=== PATIENT | female | born 1975 | race Caucasian/White ===

== ENCOUNTER 2016-11-26 00:53 | Emergency (ER) | payer BC, OTHER ==
[2016-11-26 01:09] VITALS: BP 145/68; PULSE 100; RESP 18; TEMP 98.2; O2SAT 99
[2016-11-26 02:39] LABS: AUTOMATED NEUTROPHIL # 7.5 TH/MM3 (1.8-7.7); BASOPHIL # 0.1 TH/MM3 (0-0.2); BASOPHIL % 0.6 % (0.0-2.0); EOSINOPHIL # 0.1 TH/MM3 (0-0.4); EOSINOPHIL % 0.7 % (0.0-4.0); HEMATOCRIT 40.9 % (35.0-46.0); HEMO FLAGS DIFF FINAL; LYMPH % 21.4 % (9.0-44.0); LYMPHOCYTE # 2.3 TH/MM3 (1.0-4.8); MEAN CELL VOLUME 94.3 FL (80.0-100.0); MEAN CORPUSCULAR HEMOGLOBIN 31.2 PG (27.0-34.0); MEAN CORPUSCULAR HGB CONC 33.1 % (32.0-36.0); MONO % 6.1 % (0.0-8.0); NEUT % 71.2 % (16.0-70.0); PLATELET COUNT 277 TH/MM3 (150-450); RED BLOOD COUNT 4.34 MIL/MM3 (4.00-5.30); RED CELL DISTRIBUTION WIDTH 12.5 % (11.6-17.2); WHITE BLOOD COUNT 10.5 TH/MM3 (4.0-11.0)
[2016-11-26 02:41] LABS: AMPHETAMINE, URINE NEG (NEG); BARBITURATES, URINE NEG (NEG); COCAINE, URINE NEG (NEG)
[2016-11-26 02:50] LABS: BICARBONATE 27.6 MEQ/L (21.0-32.0); POTASSIUM 3.5 MEQ/L (3.5-5.1)
--- NOTE | 2016-11-26 03:05 | PD ---
HPI Chief Complaint: Psychiatric Symptoms Time Seen by Provider: 03:04 Travel History International Travel<30 days: No Contact w/Intl Traveler<30days: No Traveled to known affect area: No History of Present Illness HPI 41-year-old female presents to emergency department under Rocha act for psychiatric evaluation. Patient states she got into an argument with her and made comments about wanting to . Patient states she may no suicidal threat. Denies suicidal or homicidal ideations. States she does drink alcohol and has been today. She denies any other acute medical needs at this time. [facility] Past Medical History Medical History: Denies Significant Hx ?: Not Past Surgical History Surgical History: No Previous Surgery Social History Alcohol Use: Yes (socially) Tobacco Use: No Allergies-Medications (Allergen,Severity, Reaction): Coded Allergies: No Known Allergies (Unverified , 11/26/16) Reported Meds & Prescriptions Reported Meds & Active Scripts Active No Active Prescriptions or Reported Medications Review of Systems Except as stated in HPI: all other systems reviewed are Neg Physical Exam Narrative GENERAL: Well-nourished, well-developed female patient in no acute distress SKIN: Focused skin assessment warm/dry. HEAD: Normocephalic. EYES: No scleral icterus. No injection or drainage. NECK: Supple, trachea midline. No JVD or lymphadenopathy. CARDIOVASCULAR: Elevated rate and rhythm without murmurs, gallops, or rubs. RESPIRATORY: Breath sounds equal bilaterally. No accessory muscle use. GASTROINTESTINAL: Abdomen soft, non-tender, nondistended. MUSCULOSKELETAL: No cyanosis, or edema. BACK: Nontender without obvious deformity. No CVA tenderness. Data Data Last Documented VS Vital Signs Date Time Temp Pulse Resp B/P Pulse Ox O2 Delivery O2 Flow Rate FiO2 11/26/16 01:09 98.2 100 18 145/68 99 Room Air Orders Complete Blood Count With Diff (11/26/16 01:14) Basic Metabolic Panel (Bmp) (11/26/16 01:14) Psych Screen (11/26/16 01:14) Drug Screen, Random Urine (11/26/16 01:14) Alcohol (Ethanol) (11/26/16 01:14) Labs Laboratory Tests Test 11/26/16 02:20 White Blood Count 10.5 TH/MM3 Red Blood Count 4.34 MIL/MM3 Hemoglobin 13.5 GM/DL Hematocrit 40.9 % Mean Corpuscular Volume 94.3 FL Mean Corpuscular Hemoglobin 31.2 PG Mean Corpuscular Hemoglobin 33.1 % Concent Red Cell Distribution Width 12.5 % Platelet Count 277 TH/MM3 Mean Platelet Volume 9.8 FL Neutrophils (%) (Auto) 71.2 % Lymphocytes (%) (Auto) 21.4 % Monocytes (%) (Auto) 6.1 % Eosinophils (%) (Auto) 0.7 % Basophils (%) (Auto) 0.6 % Neutrophils # (Auto) 7.5 TH/MM3 Lymphocytes # (Auto) 2.3 TH/MM3 Monocytes # (Auto) 0.6 TH/MM3 Eosinophils # (Auto) 0.1 TH/MM3 Basophils # (Auto) 0.1 TH/MM3 CBC Comment DIFF FINAL Differential Comment Sodium Level 143 MEQ/L Potassium Level 3.5 MEQ/L Chloride Level 106 MEQ/L Carbon Dioxide Level 27.6 MEQ/L Anion Gap 9 MEQ/L Blood Urea Nitrogen 15 MG/DL Creatinine 0.91 MG/DL Estimat Glomerular Filtration 68 ML/MIN Rate Random Glucose 98 MG/DL Calcium Level 9.3 MG/DL Urine Opiates Screen NEG Urine Barbiturates Screen NEG Urine Amphetamines Screen NEG Urine Benzodiazepines Screen NEG Urine Cocaine Screen NEG Urine Cannabinoids Screen NEG Ethyl Alcohol Level 35 MG/DL MDM Medical Decision Making Medical Screen Exam Complete: Yes Emergency Medical Condition: Yes Medical Record Reviewed: Yes Differential Diagnosis Mood disorder versus personality disorder versus adjustment reaction disorder versus substance abuse Narrative Course 41-year-old female presents to the emergency department under Rocha act for psychiatric evaluation. Patient appears without distress. Lab work is without acute abnormality. Patient is medically cleared to undergo psychiatric screening for further evaluation and disposition. Mental health screening discussed with the patient. Psychiatric screen ordered. Diagnosis Primary Impression: Adjustment disorder Scripts No Active Prescriptions or Reported Meds Condition: Sandra De Luna November 26, 2016 03:04
[2016-11-26 08:14] VITALS: BP 114/58; PULSE 75; RESP 16; O2SAT 96
--- NOTE | 2016-11-26 15:27 | PD.CONS ---
Provisional Diagnosis Admission Date [facility]. Adjustment disorder with disturbance of conduct [facility] II. Deferred [facility]. No significant medical history [facility] IV. Consult with [facility]. 55 History of Present Illness Service Psychiatry Consult Requested By Primary Care Physician No Primary Care Physician HPI The patient is a 41-year-old woman, who recently moved to [place] from [place], , without any previous psychiatric history, no previous suicidal attempts, no previous psychiatric hospitalizations, no significant medical history, who presents to emergency department under Rocha act for psychiatric evaluation. Patient states she got into an argument with her and made comments about wanting to . On psychiatric evaluation today the patient clarifies that yesterday was her first day living in [place]. She and her bought a new house in [place], they went to eat to a restaurant last night to celebrate, she had a couple of glasses of wine, but when she got home she engaged in an argument with her , she says that he lacks her out of the house while it was raining, she became very loud, he finally called the police. Patient says that she feels fine now, denies depressive symptoms, denies anxiety, denies suicidal and homicidal ideation, denies visual and auditory hallucinations. Patient is oriented 3. She denies the use of illicit drugs, drinks alcohol occasionally. I contacted her by phone Randall Nick, he confirms that he had an argument with the patient. He is states that the patient never made a suicidal statement. He called the police because he was afraid about the patient level of violence, but he never thought that she would end up in psychiatry. He says that he doesn't have any concern about the patient going back home today. Review of Systems Constitutional: DENIES: Diaphoretic episodes, Fatigue, Fever, Weight gain, Weight loss, Chills, Dizziness, Change in appetite, Night Sweats Endocrine: DENIES: Abnorml menstrual pattern, Heat/cold intolerance, Polydipsia , Polyuria, Polyphagia Eyes: DENIES: Blurred vision, Diplopia, Eye inflammation, Eye pain, Vision loss , Photosensitivity, Double Vision Ears, nose, mouth, throat: DENIES: Tinnitus, Hearing loss, Vertigo, Nasal discharge, Oral lesions, Throat pain, Hoarseness, Ear Pain, Running Nose, Epistaxis, Sinus Pain, Toothache, Odynophagia Respiratory: DENIES: Apneas, Cough, Snoring, Wheezing, Hemoptysis, Sputum production, Shortness of breath Cardiovascular: DENIES: Chest pain, Palpitations, Syncope, Dyspnea on Exertion , PND, Lower Extremity Edema, Orthopnea, Claudication Gastrointestinal: DENIES: Abdominal pain, Black stools, Bloody stools, Constipation, Diarrhea, Nausea, Vomiting, Difficulty Swallowing, Anorexia Genitourinary: DENIES: Abnormal vaginal bleeding, Dysmenorrhea, Dyspareunia, Sexual dysfunction, Urinary frequency, Urinary incontinence, Urgency, Hematuria , Dysuria, Nocturia, Vaginal discharge Musculoskeletal: DENIES: Joint pain, Muscle aches, Stiffness, Joint Swelling, Back pain, Neck pain Integumentary: DENIES: Abnormal pigmentation, Pruritus, Rash, Nail changes, Breast masses, Breast skin changes, Nipple discharge Hematologic/lymphatic: DENIES: Bruising, Lymphadenopathy Immunologic/allergic: DENIES: Eczema, Urticaria Neurologic: DENIES: Abnormal gait, Headache, Localized weakness, Paresthesias, Seizures, Speech Problems, Tremor, Poor Balance Psychiatric: DENIES: Anxiety, Confusion, Mood changes, Depression, Hallucinations, Agitation, Suicidal Ideation, Homicidal Ideation, Delusions Past Family Social History Coded Allergies: No Known Allergies (Unverified , 11/26/16) No Active Prescriptions or Reported Meds Family History Patient denies psychiatric family history Social History Patient was born and raised in [place], she moved yesterday to [place], she lives in [facility], with , her highest level of education is high school Patient's Strengths (min. 2) Family support Physical Exam A physical exam, no withdrawal, no EPS, no tremors, no psychomotor retardation or agitation, Vital Signs Vital Signs Date Time Temp Pulse Resp B/P Pulse Ox O2 Delivery O2 Flow Rate FiO2 11/26/16 10:48 99 11/26/16 08:14 75 16 114/58 Room Air 11/26/16 01:09 98.2 Lab Results BAL 35, toxicology negative Mental Status Examination Appearance woman, [facility], good hygiene, age appearing, calm, cooperative and pleasant Speech: Unremarkable Orientation: x3 Memory: Unremarkable Thought Process: Logical Thought Content: Unremarkable Hallucination Type: None Suicidal Ideation: No Previous Suicide Attempts: No Homicidal Ideation: No Previous Homicide Attempts: No Insight: Good Affect if Inappropriate: Flat Mood: Euthymic Motor Activity: Normal gait Assessment & Plan Problem List: (1) Adjustment disorder with disturbance of conduct Assessment & Plan: At the moment of this evaluation the patient does not present any evidence of depression, anxiety, psychosis or karlos. Patient denies suicidal and homicidal ideation, she denies visual and auditory hallucinations. On longitudinal observation patient has been calm, cooperative no agitation or aggressive behavior reported. Patient is now logical, coherent and relevant. She does not meet criteria for psychiatric admission. Her contacted by phone agrees with this plan. Support and psycho education provided. Rocha act will be lifted. ICD Code: F43.24 Assessment & Plan Estimated LOS: Fili Ascencio MD November 26, 2016 15:27
== END 2016-11-26 11:03 | disposition home or self-care (01) ==
LOC: NEPD 00:53
DX: F43.20 Adjustment disorder, unspecified (principal); F43.24 Adjustment disorder with disturbance of conduct
CPT/HCPCS: 80048; 80307; 85025; 99284